=== PATIENT | female | born 1945 | race Hispanic/Latino ===

== ENCOUNTER 2017-03-23 20:52 | Emergency (ER) | payer MEDICARE, BC ==
[2017-03-23 20:53] VITALS: BMI 20.9
[2017-03-23 21:04] VITALS: TEMP 98.2
--- NOTE | 2017-03-23 21:27 | ED PDOC ---
Arrival/HPI - General Chief Complaint: Abdominal Pain Time Seen by Provider: 03/23/17 20:54 Historian: Patient - History of Present Illness Narrative History of Present Illness (Text): 03/23/17 21:18 A 71 year old female, whose past medical history includes rectal CA, colostomy, hypertension, and diabetes, presents to the emergency department complaining of abdominal pain and stool output changes. Patient reports having colostomy bag for years. She states around 14:00 today, she began experiencing pain near where colostomy bag in LUQ. Also, patient had been unable to pass stool. Patient denies any fever, vomiting, or any other complaints. PMD: Dr. Oh Time/Duration: Other (14:00 today) Symptom Onset: Sudden Symptom Course: Unchanged Severity Level: 2 Past Medical History - Provider Review Nursing Documentation Reviewed: Yes - Cardiac Hx Hypertension: Yes - Pulmonary Hx Respiratory Disorders: No - Neurological Hx Neurological Disorder: No - HEENT Hx HEENT Disorder: No - Renal Hx Renal Disorder: No - Endocrine/Metabolic Hx Diabetes Mellitus Type 2: Yes - Hematological/Oncological Hx Blood Disorders: Yes Hx Blood Transfusions: No Hx Cancer: Yes Other/Comment: RECTAL CA - Integumentary Hx Dermatological Disorder: No - Musculoskeletal/Rheumatological Hx Musculoskeletal Disorders: No - Gastrointestinal Hx Colostomy: Yes - Genitourinary/Gynecological Hx Genitourinary Disorders: Yes Hx Urinary Tract Infection: Yes - Psychiatric Hx Psychophysiologic Disorder: No Hx Emotional Abuse: No Hx Physical Abuse: No Hx Substance Use: No - Surgical History Other/Comment: COLOSTOMY - Anesthesia Hx Anesthesia: Yes Hx Anesthesia Reactions: No Hx Malignant Hyperthermia: No - Suicidal Assessment Feels Threatened In Home Enviroment: No Family/Social History - Physician Review Nursing Documentation Reviewed: Yes Family/Social History: No Known Family HX Smoking Status: Never Smoked Hx Alcohol Use: No Hx Substance Use: No Allergies/Home Meds Allergies/Adverse Reactions: Allergies No Known Allergies Allergy (Verified 03/23/17 20:55) Home Medications: Home Meds Medication Instructions Recorded Confirmed Alprazolam [Alprazolam Xr] 0.5 mg PO PRN PRN 09/08/15 03/23/17 B6/FA/B12/Co Q10/Herb No.225 1 packet PO DAILY 09/08/15 03/23/17 [Healthy Heart Complex Tablet] PARoxetine [Paxil] 20 mg PO QAM 09/08/15 03/23/17 metFORMIN [glucOPHAGE] 500 mg PO DAILY 05/09/16 03/23/17 Aspirin [Adult Low Dose Aspirin EC] 81 mg PO DAILY 03/23/17 03/23/17 Cholecalciferol (Vitamin D3) 1 tab PO DAILY 03/23/17 03/23/17 [Vitamin D3] Enalapril Maleate [Vasotec] 5 mg PO DAILY 03/23/17 03/23/17 Simvastatin [Zocor] 20 mg PO DAILY 03/23/17 03/23/17 Sulfamethoxazole/Trimethoprim 1 tab PO BID 03/23/17 03/23/17 [Bactrim DS Tab] Turmeric/Turmeric Root Extract 500 mg PO DAILY 03/23/17 03/23/17 [Turmeric 500 mg Capsule] Ubiquinol [Ubiquinol] 100 mg PO DAILY 03/23/17 03/23/17 Review of Systems - Physician Review All systems were reviewed & negative as marked: Yes - Review of Systems Constitutional: absent: Fevers Gastrointestinal: Abdominal Pain, Stool Changes. absent: Vomiting Physical Exam Vital Signs Reviewed: Yes Vital Signs Temp Pulse Resp BP Pulse Ox 03/24/17 01:00 87 17 137/78 97 03/23/17 20:59 98.2 F 95 H 16 173/78 H 98 Temperature: Afebrile Blood Pressure: Hypertensive Pulse: Regular Respiratory Rate: Normal Appearance: Positive for: Well-Appearing Pain Distress: None Mental Status: Positive for: Alert and Oriented X 3 - Systems Exam Head: Present: Atraumatic, Normocephalic Pupils: Present: PERRL Extroacular Muscles: Present: EOMI Conjunctiva: Present: Normal Mouth: Present: Moist Mucous Membranes Neck: Present: Normal Range of Motion, Other (supple) Respiratory/Chest: Present: Clear to Auscultation, Good Air Exchange. No: Respiratory Distress, Accessory Muscle Use Cardiovascular: Present: Regular Rate and Rhythm, Normal S1, S2. No: Murmurs Abdomen: Present: Tenderness (subjective tenderness around colostomy site LUQ), Normal Bowel Sounds. No: Guarding Back: Present: Normal Inspection Upper Extremity: Present: Normal Inspection. No: Cyanosis, Edema Lower Extremity: Present: Normal Inspection. No: Edema Neurological: Present: GCS=15, CN II-XII Intact, Speech Normal, Other (no focal deficits) Skin: Present: Warm, Dry, Normal Color. No: Rashes Psychiatric: Present: Alert, Oriented x 3, Normal Insight, Normal Concentration Medical Decision Making ED Course and Treatment: 03/23/17 21:23 Impression: 71 year old female with abdominal pain around colostomy site. Physical exam shows subjective tenderness around colostomy sight with no guarding. Differential Diagnosis included but are not limited to: Bowel Obstruction Plan: -- EKG -- Abd/Pelvis CT w/ contrast -- Labs -- IV Fluids -- Reassess and disposition Progress Notes: 03/24/2017 00:28 Abd/Pelvis CT IMPRESSION: 1. There is intrahepatic and extrahepatic biliary ductal dilatation although this may be within normal limits in this post cholecystectomy patient. Pancreatic duct is mildly prominent proximally measuring 4 mm. It is difficult to exclude underlying abnormality. If indicated, this could be further evaluated with MRCP or ERCP. 2. Both kidneys demonstrate mild hydronephrosis and hydroureter. Additionally, there is mild enhancement of both ureteral fairbanks. This is nonspecific but can be seen in infectious, inflammatory or neoplastic processes. No obstructing calculi are seen. If indicated, these findings could be further evaluated with retrograde ureterograms. 3. Small hiatal hernia and some contrast material within the mid and distal esophagus suggesting reflux or vomiting. 4. Bladder is decompressed however demonstrates wall thickening and perivesicle stranding. This is nonspecific but can relate to infectious, inflammatory or neoplastic process, or bladder outflow obstruction. Please correlate clinically and if indicated followup can be obtained. 5. There is abnormal soft tissue density in the presacral region. Unclear if this represents inflammatory phlegmon or mass. Questionable wall thickening of the rectum in this region as well. Followup can be obtained as clinically indicated. 6. There is a left lower quadrant colostomy which appears intact. 7. Additional incidental and/or chronic findings as described. There is no evidence of intestinal obstruction. Dictator: Fuad Cowart MD 03/24/17 00:48 Laxative to be prescribed to patient and will be discharged home. - Lab Interpretations Lab Results: 03/23/17 21:30 03/23/17 21:30 Lab Results 03/23/17 22:17: Urine Color Yellow, Urine Appearance Clear, Urine pH 6.0, Ur Specific Dexter 1.025, Urine Protein 100 H, Urine Glucose (UA) Negative, Urine Ketones Negative, Urine Blood Large H, Urine Nitrate Negative, Urine Bilirubin Negative, Urine Urobilinogen 0.2, Ur Leukocyte Esterase Negative, Urine RBC 2 - 5, Urine WBC 1 - 3, Ur Epithelial Cells 0 - 2 03/23/17 21:30: WBC 7.4 D, RBC 4.22, Hgb 13.0, Hct 38.8, MCV 91.9, MCH 30.8, MCHC 33.5, RDW 13.1, Plt Count 239, MPV 9.2, Gran % 80.6 H, Lymph % (Auto) 9.6 L , [place] % (Auto) 7.3 H, Eos % (Auto) 2.2, Baso % (Auto) 0.3, Gran # 5.94, Lymph # 0.7 L, [place] # 0.5, Eos # 0.2, Baso # 0.02 03/23/17 21:30: Sodium 135, Potassium 4.2, Chloride 99, Carbon Dioxide 24, Anion Gap 17, BUN 13, Creatinine 0.9, Est GFR ( Amer) > 60, Est GFR (Non- Af Amer) > 60, Random Glucose 165 H, Calcium 9.3, Total Bilirubin 0.3, AST 30, ALT 26, Alkaline Phosphatase 108, Total Protein 7.4, Albumin 4.2, Globulin 3.2, Albumin/Globulin Ratio 1.3, Amylase 58 I have reviewed the lab results: Yes - RAD Interpretation Radiology Orders: 03/23/17 21:23 ABDOMEN & PELVIS [ABD PELVIS PO & IV CONTRAST] [CT] Stat - EKG Interpretation EKG Interpretation (Text): 03/23/17 21:51 EKG demonstates a NSR at 90 BPM.There is LAD,nl intervals,no ectopy,no acute ST changes Interpreted by ED Physician: Yes Type: 12 lead EKG Comparison: No previous EKG avail. - Medication Orders Current Medication Orders: Discontinued Medications Ondansetron HCl (Zofran Inj) 4 mg IVP STAT STA Stop: 03/23/17 22:09 Last Admin: 03/23/17 22:08 Dose: 4 mg IVP Administration Document 03/23/17 22:08 RD (Rec: 03/23/17 22:11 RD [id number]) Charges for Administration # of IVP Administrations 1 - Scribe Statement The provider has reviewed the documentation as recorded by the Karlibangela Wall Provider Scribe Attestation: All medical record entries made by the Scribe were at my direction and personally dictated by me. I have reviewed the chart and agree that the record accurately reflects my personal performance of the history, physical exam, medical decision making, and the department course for this patient. I have also personally directed, reviewed, and agree with the discharge instructions and disposition. Disposition/Present on Arrival - Present on Arrival Any Indicators Present on Arrival: No History of DVT/PE: No History of Uncontrolled Diabetes: No Urinary Catheter: No History of Decub. Ulcer: No History Surgical Site Infection Following: None - Disposition Have Diagnosis and Disposition been Completed?: Yes Diagnosis: Constipation Disposition: HOME/ ROUTINE Disposition Time: 03:54 Patient Plan: Discharge Condition: GOOD Discharge Instructions (ExitCare): Constipation (ED), High Fiber Diet (ED) Print Language: [place] Additional Instructions: take metamucil or fiberall laxative Referrals: Viola Oh MD [Primary Care Provider] - Follow up with primary Forms: [employer] (Polish)
[2017-03-23] MEDS ORDERED: Iohexol 240 (50 ml) ONE (21:31)
[2017-03-23 21:48] LABS: BASO # 0.02 K/mm3 (0.0-2.0); BASO % 0.3 % (0.0-3.0); EOS # 0.2 (0.0-0.7); EOS % 2.2 % (1.5-5.0); GRAN # 5.94 (1.4-6.5); GRAN % 80.6 % (50.0-68.0); HEMATOCRIT 38.8 % (36.0-48.0); LYMPH # 0.7 (1.2-3.4); LYMPH % 9.6 % (22.0-35.0); MEAN CELL VOLUME 91.9 fl (80.0-105.0); MEAN CORPUSCULAR HEMOGLOBIN 30.8 pg (25.0-35.0); MEAN CORPUSCULAR HGB CONC 33.5 g/dl (31.0-37.0); MEAN PLATELET VOLUME 9.2 fl (7.0-11.0); MONO # 0.5 (0.1-0.6); MONO % 7.3 % (1.0-6.0); RED CELL DISTRIBUTION WIDTH 13.1 % (11.5-14.5); WHITE BLOOD COUNT 7.4 10^3/ul (4.5-11.0)
[2017-03-23 22:00] LABS: ALB/GLOB RATIO 1.3 (1.1-1.8); ALKALINE PHOSPHATASE 108 U/L (38-126); ALT/SGPT 26 U/L (7-56); AMYLASE 58 U/L (35-125); AST/SGOT 30 U/L (14-36); BILIRUBIN,TOTAL 0.3 mg/dL (0.2-1.3); BLOOD UREA NITROGEN 13 mg/dL (7-21); CALCIUM 9.3 mg/dL (8.4-10.5); CARBON DIOXIDE 24 mmol/L (21-33); CHLORIDE 99 mmol/L (98-107); GFR AFRICAN-AMERICAN > 60; GLUCOSE,RANDOM 165 mg/dL (70-110); POTASSIUM 4.2 mmol/L (3.6-5.0); SODIUM 135 mmol/L (132-148); TOTAL PROTEIN 7.4 g/dL (5.8-8.3)
[2017-03-23 22:39] LABS: URINE BILIRUBIN NEGATIVE (NEGATIVE); URINE BLOOD LARGE (NEGATIVE); URINE GLUCOSE (UA) NEGATIVE (NEGATIVE); URINE KETONE NEGATIVE (NEGATIVE); URINE LEUKOCYTE ESTERASE NEGATIVE Leu/uL (NEGATIVE); URINE PROTEIN 100 mg/dL (<30 mg/dL); URINE UROBILINOGEN 0.2 E.U./dL (<1 E.U./dL)
[2017-03-23 22:42] LABS: URINE APPEARANCE CLEAR (CLEAR); URINE COLOR YELLOW (YELLOW)
[2017-03-23 22:43] LABS: URINE EPITHELIAL CELLS 0 - 2 /hpf (0-5)
[2017-03-23] MEDS ORDERED: Iohexol 350 MG/100 ML VIAL ONE (23:44)
--- NOTE | 2017-03-24 00:28 | CT ---
EXAM: CT Abdomen and Pelvis With Intravenous Contrast CLINICAL HISTORY: 71 years old, female; Pain; Abdominal pain; Generalized; Prior surgery; Surgery type: Gb removed. Colostomy; Additional info: R/O obstruction TECHNIQUE: Axial computed tomography images of the abdomen and pelvis with intravenous contrast. All CT scans at this facility use one or more dose reduction techniques, viz.: automated exposure control; ma/kV adjustment per patient size (including targeted exams where dose is matched to indication; i.e. head); or iterative reconstruction technique. Coronal and sagittal reformatted images were created and reviewed. CONTRAST: 100 mL of OMNI 350 administered intravenously. COMPARISON: No relevant prior studies available. FINDINGS: Lower thorax: Small hiatal hernia and some contrast material within the mid and distal esophagus suggesting reflux or vomiting. There is minimal bibasilar atelectasis. ABDOMEN: Liver: There are no focal liver lesions present. Gallbladder and bile ducts: There is intrahepatic and extrahepatic biliary ductal dilatation although this may be within normal limits in this post cholecystectomy patient. Pancreatic duct is mildly prominent proximally measuring 4 mm. It is difficult to exclude underlying abnormality. If indicated, this could be further evaluated with MRCP or ERCP. There has been a cholecystectomy. Pancreas: Pancreas is slightly atrophic and slightly fatty replaced. No ductal dilation. Spleen: The spleen is normal. Adrenals: The adrenal glands are normal. Kidneys and ureters: Both kidneys demonstrate mild hydronephrosis and hydroureter. Additionally, there is mild enhancement of both ureteral [place]. This is nonspecific but can be seen in infectious, inflammatory or neoplastic processes. No obstructing calculi are seen. If indicated, these findings could be further evaluated with retrograde ureterograms. Stomach and bowel: There is abnormal soft tissue density in the presacral region. Unclear if this represents inflammatory phlegmon or mass. Questionable wall thickening of the rectum in this region as well. Followup can be obtained as clinically indicated. There is a left lower quadrant colostomy which appears intact. The stomach is normal. Colonic constipation is present. There is no evidence of intestinal obstruction. Appendix: No findings to suggest acute appendicitis. PELVIS: Bladder: Bladder is decompressed however demonstrates wall thickening and perivesicle stranding. This is nonspecific but can relate to infectious, inflammatory or neoplastic process, or bladder outflow obstruction. Please correlate clinically and if indicated followup can be obtained. Reproductive: Unremarkable as visualized. ABDOMEN and PELVIS: Intraperitoneal space: There is small pelvic ascites, nonspecific. There is no free intraperitoneal air. Bones/joints: There are moderate degenerative changes present. There is mild diffuse osteopenia. No acute fracture. No dislocation. Soft tissues: Unremarkable. Vasculature: The aorta demonstrates mild atherosclerotic calcification. No abdominal aortic aneurysm. Lymph nodes: There is no evidence of lymphadenopathy. IMPRESSION: 1. There is intrahepatic and extrahepatic biliary ductal dilatation although this may be within normal limits in this post cholecystectomy patient. Pancreatic duct is mildly prominent proximally measuring 4 mm. It is difficult to exclude underlying abnormality. If indicated, this could be further evaluated with MRCP or ERCP. 2. Both kidneys demonstrate mild hydronephrosis and hydroureter. Additionally, there is mild enhancement of both ureteral fairbanks. This is nonspecific but can be seen in infectious, inflammatory or neoplastic processes. No obstructing calculi are seen. If indicated, these findings could be further evaluated with retrograde ureterograms. 3. Small hiatal hernia and some contrast material within the mid and distal esophagus suggesting reflux or vomiting. 4. Bladder is decompressed however demonstrates wall thickening and perivesicle stranding. This is nonspecific but can relate to infectious, inflammatory or neoplastic process, or bladder outflow obstruction. Please correlate clinically and if indicated followup can be obtained. 5. There is abnormal soft tissue density in the presacral region. Unclear if this represents inflammatory phlegmon or mass. Questionable wall thickening of the rectum in this region as well. Followup can be obtained as clinically indicated. 6. There is a left lower quadrant colostomy which appears intact. 7. Additional incidental and/or chronic findings as described.
[2017-03-24 01:02] VITALS: BP 137/78; PULSE 87; RESP 17; O2SAT 97
--- NOTE | 2017-03-24 20:07 | CARD ---
APPROVED REPORT EKG Measurement Heart [id number] <Conclusion> Normal sinus rhythm Left axis deviation Abnormal ECG
== END 2017-03-24 01:00 | disposition home or self-care (01) ==
LOC: ED 20:52
DX: K59.00 Constipation, unspecified (principal); E11.9 Type 2 diabetes mellitus without complications; I10 Essential (primary) hypertension; Z79.84 Long term (current) use of oral hypoglycemic drugs
CPT/HCPCS: 74177; 80053; 81001; 82150; 85025; 93005; 96374; 99283; J2405; Q9966; Q9967

== ENCOUNTER 2017-05-24 11:24 | Day surgery (SDC) | payer MEDICARE, BC ==
[2017-04-24 10:28] VITALS: BMI 21.9
[2017-05-24] MEDS ORDERED: Propofol 10 mg/ml Inj (20 ML) ONE (12:43)
[2017-05-24] MEDS ORDERED: Lactated Ringer's 1,000 ML IV SCH (12:45)
[2017-05-24 14:20] VITALS: BP 125/63; PULSE 95; RESP 14; TEMP 98.2; O2SAT 96
== END 2017-05-24 14:50 | disposition home or self-care (01) ==
LOC: ENDO 11:24
PROVIDERS: ATTEND Internal Medicine Gastroenterology
DX: Z12.11 Encounter for screening for malignant neoplasm of colon (principal); K63.89 Other specified diseases of intestine; Z85.038 Personal history of other malignant neoplasm of large intestine
CPT/HCPCS: 45378; 82948; J2001; J2704; J7040; J7120

== ENCOUNTER 2017-10-11 10:32 | Day surgery (SDC) | payer MEDICARE, BC ==
[2017-04-24 10:28] VITALS: BMI 21.9
[2017-10-11] MEDS ORDERED: Propofol 10 mg/ml Inj (20 ML) ONE (13:27)
[2017-10-11] MEDS ORDERED: Sodium Chloride 0.9% 1,000 ML IV SCH (14:00)
[2017-10-11 14:25] VITALS: PULSE 73; O2SAT 98
[2017-10-11 14:52] VITALS: BP 132/60; RESP 18; TEMP 98.3
== END 2017-10-11 15:31 | disposition home or self-care (01) ==
LOC: ENDO 10:32
PROVIDERS: ATTEND Internal Medicine Gastroenterology
DX: R93.3 Abnormal findings on diagnostic imaging of other parts of digestive tract (principal); Z85.048 Personal history of other malignant neoplasm of rectum, rectosigmoid junction, and anus; Z80.0 Family history of malignant neoplasm of digestive organs; I10 Essential (primary) hypertension; K21.9 Gastro-esophageal reflux disease without esophagitis; E11.9 Type 2 diabetes mellitus without complications; Z79.84 Long term (current) use of oral hypoglycemic drugs
CPT/HCPCS: 45380; 82948; 88305; J2704; J7030; J7040

== ENCOUNTER 2018-07-21 07:26 | Outpatient (CLI) | payer MEDICARE | END 2018-07-21 07:27 | disposition home or self-care (01) | LOC: PET-BROA 07:26 ==

== ENCOUNTER 2018-08-01 10:35 | Outpatient (CLI) | payer MEDICARE | END 2018-08-01 10:36 | disposition home or self-care (01) | LOC: RAD 10:35 | DX: R10.9 Unspecified abdominal pain (principal) ==